=== PATIENT | female | born 1940 | race Caucasian/White ===

== ENCOUNTER 2017-10-14 20:08 | Emergency (ER) | payer MEDICARE, OTHER ==
[~2017-10-14] VITALS: Ht 172.7 cm; Wt 58.3 kg
[2017-10-14 20:45] LABS: BASOPHILS % (AUTO) 0.5 % (0-1); EOSINOPHILS # (AUTO) 0.1 X10'3 (0-0.9); EOSINOPHILS % (AUTO) 3.1 % (0-6); HEMATOCRIT 35.9 % (35.0-45.0); HEMOGLOBIN 12.5 g/dl (12.0-16.0); LYMPHOCYTES # (AUTO) 0.9 X10'3 (1.1-4.8); LYMPHOCYTES % (AUTO) 23.4 % (21-51); MEAN CORPUSCULAR HEMOGLOBIN 30.9 PG (27.0-31.0); MEAN CORPUSCULAR HGB CONC 34.7 % (33.0-36.5); MEAN CORPUSCULAR VOLUME 88.9 FL (78-98); MEAN PLATELET VOLUME 7.2 FL (7.4-10.4); MONOCYTES # (AUTO) 0.1 X10'3 (0-0.9); MONOCYTES % (AUTO) 3.6 % (2-12); NEUTROPHILS # (AUTO) 2.7 X10'3 (1.8-7.7); NEUTROPHILS % (AUTO) 69.4 % (42-75); PLATELET COUNT 327 X10'3 (140-440); RED BLOOD COUNT 4.04 X10'6 (4.20-5.60); RED CELL DISTRIBUTION WIDTH 13.6 % (11.5-14.5); WHITE BLOOD COUNT 3.8 X10'3 (4.5-11.0)
[2017-10-14 20:55] LABS: PROTHROMBIN TIME 10.7 SECONDS (9.0-12.0)
[2017-10-14 21:01] LABS: ALANINE AMINOTRANSFERASE 13 U/L (12-78); ALBUMIN 3.7 G/DL (3.4-5.0); ALBUMIN/GLOBULIN RATIO 0.9 (1.1-1.5); ALKALINE PHOSPHATASE 141 IU/L (46-116); ANION GAP 6 (8-16); ASPARTATE AMINO TRANSFERASE 12 U/L (10-37); BILIRUBIN,TOTAL 0.5 MG/DL (0.1-1.0); BLOOD UREA NITROGEN 15 MG/DL (7-18); BUN/CREATININE RATIO 18.8 (6.6-38.0); CALCIUM 8.9 MG/DL (8.5-10.1); CHLORIDE 100 MMOL/L (99-107); GLUCOSE 101 MG/DL (70-104); POTASSIUM 3.5 MMOL/L (3.5-5.1); SODIUM 135 MMOL/L (135-145); TOTAL CARBON DIOXIDE 28.6 MMOL/L (24-32); TOTAL PROTEIN 7.6 G/DL (6.4-8.2); eGFR 70 ML/MIN
[2017-10-14] MEDS ORDERED: ondansetron 4mg rapidly disintigrating tab PO ONE (21:45)
[2017-10-14] MEDS ORDERED: normal saline 1000ML IV soln IVB ONE (21:45)
[2017-10-14 21:56] LABS: CLARITY,URINE CLOUDY (Clear); COLOR,URINE YELLOW (Yellow); GLUCOSE, URINE NEGATIVE (Neg); KETONES,URINE NEGATIVE (Neg); LEUKOCYTE ESTERASE ,URINE NEGATIVE (Neg); NITRITES, URINE NEGATIVE (Neg); OCCULT BLOOD,URINE NEGATIVE (Neg); PH,URINE 8.5 (4.8-8.0); PROTEIN,URINE NEGATIVE (Neg); UROBILINOGEN,URINE 0.2 E.U/dL (0.2-1.0)
[2017-10-14 22:01] LABS: LIPASE 129 U/L (73-393)
[2017-10-14 22:02] LABS: UA COLLECTION TYPE CLN CATCH MIDSTREAM
[2017-10-14 22:11] LABS: AMORPHOUS PHOSPHATES 4+
[2017-10-14 22:13] LABS: WBC,URINE 0-4 /HPF (0-4)
[2017-10-14 22:14] LABS: BACTERIA,URINE FEW /HPF (Neg); MUCUS STRANDS FEW /LPF (Neg); RBC,URINE NONE SEEN /HPF (0-2); SQUAMOUS EPITHELIAL CELL,UR FEW /LPF (FEW)
[2017-10-14] MEDS ORDERED: pantoprazole 40mg Tablet.DR PO STA (23:39)
[2017-10-14] MEDS ORDERED: mag hydrox/Alum hydrox/simeth 30ml oral suspension PO ONE (23:40)
[2017-10-15] MEDS ORDERED: PANT20TA3 PO (00:09)
[2017-10-15] MEDS ORDERED: ONDA4TAB12 PO (00:09)
[2017-10-15 01:22] VITALS: BP 112/70
== END 2017-10-15 01:24 | disposition home or self-care (01) ==
LOC: ER 20:08
DX: M84.48XA Pathological fracture, other site, initial encounter for fracture (principal); K29.70 Gastritis, unspecified, without bleeding; R11.2 Nausea with vomiting, unspecified; E03.9 Hypothyroidism, unspecified; M06.9 Rheumatoid arthritis, unspecified; Z90.710 Acquired absence of both cervix and uterus; Z88.0 Allergy status to penicillin
CPT/HCPCS: 36415; 74176; 80053; 81001; 83605; 83690; 83735; 84484; 85025; 85610; 93005; 96360; 96361; 99285; J7030

== ENCOUNTER 2020-02-29 09:07 | Day surgery (SDC) | payer MEDICARE ==
[~2020-02-29] VITALS: Ht 172.7 cm; Wt 60.0 kg
[2020-02-29] VITALS (16 sets, daily range): BP systolic 123–139; BP diastolic 66–79
[~2020-02-29 09:07] MED LIST: ALEN70TA60 PO; ESCI5TAB PO; LEVO75TA PO; QUET25TA PO; VANCOMYCIN INJ 1000 MG in NORMAL SALINE 250ml IV.SOLN IV ONE; cefazolin/dext.iso 2gm/50ml 50 ML IV ONE; famotidine 20mg tablet PO ONE; ringers solution, lacted 1,000 ML IV SCH
[2020-02-29] MEDS ORDERED: fentaNYL/PF 50MCG/1 ML 2ML syringe ONE (10:58)
[2020-02-29] MEDS ORDERED: ROPIVAcaine 0.5% (5mg/ml) 30ml vial ONE ×2 (10:59)
[2020-02-29] MEDS ORDERED: propofol inj 20 ML IV ONE (10:59)
[2020-02-29] MEDS ORDERED: midazolam 2 mg/2 ml injection ONE (10:59)
[2020-02-29] MEDS ORDERED: LIDOcaine 2% (20mg/ml) 5ml vial ONE (11:00)
[2020-02-29] MEDS ORDERED: dexamethasone sod phosphate 4mg/ml inj. ONE (11:00)
[2020-02-29] MEDS ORDERED: ondansetron/PF 4mg/2ml inj ONE (11:02)
[2020-02-29] MEDS ORDERED: morphine 4 MG/ML inj SYRINge IV PRN (11:05)
[2020-02-29] MEDS ORDERED: fentaNYL/PF 50MCG/1 ML 2ML syringe IV PRN ×2 (11:05)
[2020-02-29] MEDS ORDERED: labetalol 20mg/4ml (5mg/ml) syringe IV PRN (11:05)
[2020-02-29] MEDS ORDERED: hydrALAZINE 20mg/ml inj. IV PRN (11:05)
[2020-02-29] MEDS ORDERED: ringers solution, lacted 1,000 ML IV SCH (11:05)
[2020-02-29] MEDS ORDERED: morphine 2 MG/ML inj. syringe IV PRN (11:05)
[2020-02-29] MEDS ORDERED: ondansetron/PF 4mg/2ml inj IV PRN (11:05)
[2020-02-29] MEDS ORDERED: sevoflurane 250ml liquid IH ONE (11:38)
[2020-02-29 11:40] LABS: ISTAT CREATININE 0.7 mg/dL (0.6-1.1); ISTAT HGB 15.6 g/dl (12.0-16.0); ISTAT IONIZED CALCIUM 1.13 mmol/L (1.03-1.32); ISTAT K 4.4 mmol/L (3.5-5.1); POC BUN/CREATININE RATIO 11.4 (6.6-38.0)
[2020-02-29] MEDS ORDERED: ePHEDrine 50MG/ML INJ. ONE (12:18)
--- NOTE | 2020-02-29 12:58 | NUR ---
RECEIVED FROM OR VIA [facility] ACCOMPANIED BY ANESTHESIOLOGIST DR REYES, REPORT GIVEN. PT DROWSY BUT AROUSES WITH NO COMPLAINT OF PAIN AT THIS TIME. 20 GAUGE PIV R WRIST PATENT AND RUNNING LR AT 100 ML/HR. SKIN PINK AND WARM, GOOD CAP REFILL, GOOD PERIPHERAL PULSES, UNABLE TO PALPATE L PEDAL PULSE COVERED WITH SPLINT.
--- NOTE | 2020-02-29 15:19 | NUR ---
PT AWKAE AND ALERT, TOLERATING FLUIDS, ABLE TO VOID, VSS WITH COMPLAINT OF PAIN AT LEVEL 2 . 20 GAUGE PIV R WRIST DC/D CATH TIP INTACT. SKIN PINK AND WARM, GOOD CAP REFILL, GOOD PERIPHERAL PULSES, UNABLE TO PALPATE L PEDAL PULSE COVERED WITH SPLINT. DISCHARGE INSTRUCTIONS GIVEN AND PT VERBALIZED UNDERSTANDING. TRANSPORTED VIA WHEELCHAIR TO TRANSPORT VAN TO SNF.
== END 2020-02-29 15:19 | disposition home or self-care (01) ==
LOC: PAS 09:07
PROVIDERS: ATTEND Orthopaedic Surgery
DX: S82.842K Displaced bimalleolar fracture of left lower leg, subsequent encounter for closed fracture with nonunion (principal); G89.18 Other acute postprocedural pain; F42.9 Obsessive-compulsive disorder, unspecified; E03.9 Hypothyroidism, unspecified; M06.9 Rheumatoid arthritis, unspecified; Z90.710 Acquired absence of both cervix and uterus; Z98.890 Other specified postprocedural states; Z79.899 Other long term (current) drug therapy; Z88.0 Allergy status to penicillin; X58.XXXD Exposure to other specified factors, subsequent encounter
CPT/HCPCS: 27814; 64445; 64447; 73600; 76000; 80047; 93005; A6222; C1713; J1100; J2001; J2250; J2405; J2704; J3010; J3370; J7120; A4618; A6449; A7000; J2795

== ENCOUNTER 2021-03-24 13:23 | Emergency (ER) | payer MEDICARE ==
[~2021-03-24] VITALS: Ht 375.9 cm; Wt 59.1 kg
[~2021-03-24 13:23] MED LIST changes: -VANCOMYCIN INJ 1000 MG in NORMAL SALINE 250ml IV.SOLN IV ONE; -cefazolin/dext.iso 2gm/50ml 50 ML IV ONE; -famotidine 20mg tablet PO ONE; -ringers solution, lacted 1,000 ML IV SCH
[2021-03-24] MEDS ORDERED: morphine 4 MG/ML inj SYRINge IV ONE ×2 (14:30→15:40)
[2021-03-24 14:56] LABS: BASOPHILS % (AUTO) 0.5 % (0-1); EOSINOPHILS # (AUTO) 0.1 X10'3 (0-0.9); EOSINOPHILS % (AUTO) 0.9 % (0-6); HEMATOCRIT 41.2 % (35.0-45.0); LYMPHOCYTES # (AUTO) 0.6 X10'3 (1.1-4.8); LYMPHOCYTES % (AUTO) 6.4 % (21-51); MEAN CORPUSCULAR HEMOGLOBIN 30.4 PG (27.0-31.0); MEAN CORPUSCULAR HGB CONC 33.8 g/dL (33.0-36.5); MEAN CORPUSCULAR VOLUME 89.9 FL (78-98); MEAN PLATELET VOLUME 6.8 FL (7.4-10.4); MONOCYTES # (AUTO) 0.3 X10'3 (0-0.9); NEUTROPHILS # (AUTO) 7.8 X10'3 (1.8-7.7); NEUTROPHILS % (AUTO) 89.2 % (42-75); PLATELET COUNT 371 X10'3 (140-440); RED BLOOD COUNT 4.59 X10'6 (4.20-5.60); RED CELL DISTRIBUTION WIDTH 13.2 % (11.5-14.5); WHITE BLOOD COUNT 8.7 X10'3 (4.5-11.0)
[2021-03-24 15:08] LABS: ALANINE AMINOTRANSFERASE 26 U/L (12-78); ALBUMIN 3.5 G/DL (3.4-5.0); ALBUMIN/GLOBULIN RATIO 0.8 (1.1-1.5); ALKALINE PHOSPHATASE 102 IU/L (46-116); ANION GAP 8 (8-16); ASPARTATE AMINO TRANSFERASE 20 U/L (10-37); BILIRUBIN,TOTAL 0.4 MG/DL (0.1-1.0); BLOOD UREA NITROGEN 23 MG/DL (7-18); BUN/CREATININE RATIO 25.8 (6.6-38.0); CALCIUM 8.2 MG/DL (8.5-10.1); CHLORIDE 98 MMOL/L (99-107); CREATININE 0.89 MG/DL (0.40-0.90); GLUCOSE 105 MG/DL (70-104); SODIUM 134 MMOL/L (135-145); TOTAL CARBON DIOXIDE 28.2 MMOL/L (24-32); TOTAL PROTEIN 7.8 G/DL (6.4-8.2); eGFR 61 ML/MIN
[2021-03-24 17:23] VITALS: BP 145/85
[2021-03-24] MEDS ORDERED: iohexol 300mg/ml 100ml inj. ONE (17:37)
[2021-03-24 17:56] LABS: CLARITY,URINE CLEAR (Clear); COLOR,URINE YELLOW (Yellow); GLUCOSE, URINE NEGATIVE (Neg); KETONES,URINE NEGATIVE (Neg); LEUKOCYTE ESTERASE ,URINE NEGATIVE (Neg); NITRITES, URINE NEGATIVE (Neg); OCCULT BLOOD,URINE NEGATIVE (Neg); PROTEIN,URINE NEGATIVE (Neg); UROBILINOGEN,URINE 0.2 E.U/dL (0.2-1.0)
[2021-03-24 18:01] LABS: UA COLLECTION TYPE VOIDED
[2021-03-24] MEDS ORDERED: fentaNYL/PF 50MCG/1 ML 2ML syringe IV ONE ×2 (18:45→20:05)
== END 2021-03-24 21:45 | disposition short-term general hospital (02) ==
LOC: ER 13:23
DX: S22.42XA Multiple fractures of ribs, left side, initial encounter for closed fracture (principal); S42.102A Fracture of unspecified part of scapula, left shoulder, initial encounter for closed fracture; S42.025A Nondisplaced fracture of shaft of left clavicle, initial encounter for closed fracture; M54.2 Cervicalgia; M06.9 Rheumatoid arthritis, unspecified; Z88.0 Allergy status to penicillin; Z79.899 Other long term (current) drug therapy; Z90.710 Acquired absence of both cervix and uterus; W06.XXXA Fall from bed, initial encounter; Z91.81 History of falling; Y93.89 Activity, other specified; Y92.89 Other specified places as the place of occurrence of the external cause; Y99.8 Other external cause status
CPT/HCPCS: 36415; 70450; 71045; 71260; 72125; 73000; 73030; 73200; 74177; 80053; 81003; 85025; 93005; 96374; 96375; 96376; 99285; J2270; J3010; Q9967